=== PATIENT | female | born 1985 | race Two or more races ===

== ENCOUNTER 2017-09-20 21:49 | Emergency (ER) | payer MEDICAID ==
--- NOTE | 2017-09-20 22:00 | NUR ---
CALLED FOR TRIAGE. STATES "AM GONNA GO TO A HOSPITAL WHERE MY OBG WORKS"
== END 2017-09-20 22:07 | disposition left against medical advice (07) ==
LOC: ER 21:52
DX: Z53.21 Procedure and treatment not carried out due to patient leaving prior to being seen by health care provider (principal)